=== PATIENT | female | born 2000 | race Caucasian/White ===

== ENCOUNTER 2024-01-31 20:17 | Inpatient (IN) | payer OTHER ==
[2024-01-31] MEDS: ELECTROLYTE-148 SOLN 500 ML IV ONE (21:35)
[2024-01-31] MEDS ORDERED: BUTORPHANOL TARTRATE 2 MG/ML VIAL ONE (22:32)
[2024-01-31] MEDS ORDERED: PROMETHAZINE HCL 25 MG/1 ML VIAL ONE (22:33)
[2024-01-31] MEDS: BUTORPHANOL TARTRATE 1 MG/ML VIAL IVPUSH ONE (23:45)
[2024-01-31] MEDS: PROMETHAZINE HCL 25 MG/1 ML VIAL IM ONE (23:45)
[2024-02-01] MEDS: ELECTROLYTE-148 SOLN 1,000 ML IV ONE (04:00)
[2024-02-01 05:26] VITALS: BMI 31.6
[2024-02-01 08:02] LABS: POTASSIUM 3.8 mmol/L (3.5-5.1)
[2024-02-01 08:02] LABS: INR 0.91 (0.83-1.09); PROTHROMBIN TIME (PATIENT) 10.3 SEC (9.7-13.0)
[2024-02-01 08:03] LABS: CALCIUM 8.7 mg/dL (8.5-10.1)
[2024-02-01 08:04] LABS: BLOOD UREA NITROGEN 5.8 mg/dL (7-18)
[2024-02-01 08:04] LABS: ACTIVATED PTT 31.5 SECONDS (25.2-36.5)
[2024-02-01 08:07] LABS: CREATININE 0.4 mg/dL (0.55-1.3)
[2024-02-01 08:09] LABS: BASO % 0.1 % (0-2.0); EOS % 0.1 % (0-4.5); HEMATOCRIT 40.7 % (32.4-45.2); HEMOGLOBIN 13.6 GM/dL (10.7-15.3); LYMPH % 12.2 % (8-40); MCH 28.9 pg (25.7-33.7); MCHC 33.5 g/dl (32.0-36.0); MEAN CELL VOLUME 86.3 fl (80-96); MEAN PLT VOLUME 10.5 fl (7.5-11.1); MONO % 4.7 % (3.8-10.2); NEUT % 82.9 % (42.8-82.8); PLATELET COUNT 212 10^3/uL (134-434); RBC 4.72 M/mm3 (3.60-5.2); WHITE BLOOD COUNT 19.3 K/mm3 (4.0-10.0)
[2024-02-01] MEDS ORDERED: AMPICILLIN SODIUM 2 GM VIAL ONE (09:23)
[2024-02-01] MEDS: AMPICILLIN - 2 GM in SODIUM CHLORIDE 100 ML IVPB ONE (09:30)
[2024-02-01] MEDS: ELECTROLYTE-148 SOLN 1,000 ML IV SCH (10:00)
[2024-02-01] MEDS ORDERED: FENTANYL/BUPIVACAINE/NS/PF - PCEA - 50 ML DISP.SYRIN EP ONE ×3 (11:16→19:06)
[2024-02-01] MEDS ORDERED: NALOXONE HCL 0.4 MG/ML VIAL IVPUSH PRN (11:17)
[2024-02-01] MEDS ORDERED: FENTANYL CITRATE/PF 50 MCG/ML VIAL ONE ×2 (11:18→19:29)
[2024-02-01] MEDS ORDERED: BUPIVACAINE HCL/PF 0.25% (2.5MG/ML) 10 ML VIAL ONE ×2 (11:19→19:29)
[2024-02-01] MEDS: FENTANYL/BUPIVACAINE/NS/PF - PCEA - 50 ML DISP.SYRIN EP SCH (11:35)
[2024-02-01] MEDS ORDERED: OXYTOCIN 30 UNITS in 0.9% NS 30 UNIT/500 ML INFUS.BAG IVPB ONE (11:57)
[2024-02-01] MEDS: OXYTOCIN 30 UNITS in 0.9% NS 30 UNIT/500 ML INFUS.BAG IVPB SCH (12:00)
[2024-02-01] MEDS ORDERED: AMPICILLIN SODIUM 1 GM VIAL ONE ×3 (12:37→20:37)
[2024-02-01] MEDS: AMPICILLIN - 1 GM in SODIUM CHLORIDE 100 ML IVPB SCH (12:40)
[2024-02-01] MEDS ORDERED: LIDO 2%/EPI 1:200000 PRESRVFRE (20 ML SDVIAL) ONE (19:29)
[2024-02-01] MEDS ORDERED: OXYTOCIN 20 UNITS in 0.9% NS 20 UNIT/1,000 ML INFUS.BAG IV ONE (21:01)
[2024-02-01] MEDS: ACETAMINOPHEN 1000 MG/100 ML BAG IVPB ONE (21:40)
[2024-02-01] MEDS: OXYTOCIN 20 UNITS in 0.9% NS 20 UNIT/1,000 ML INFUS.BAG IV SCH (22:55)
[2024-02-01 23:03] LABS: CORD BASE EXCESS -5.1 mmol/L (0-2); CORD PCO2 42.7 mmHg (30-78); CORD pH 7.309 (7.14-7.44)
[2024-02-01 23:05] LABS: CORD BASE EXCESS -7.9 mmol/L (0-2); CORD HCO3 22.1 mmHg (20-29); CORD PCO2 65.9 mmHg (30-78); CORD pH 7.143 (7.14-7.44)
[2024-02-01] MEDS ORDERED: oxyCODONE HCL 5 MG TABLET PO PRN (23:06)
[2024-02-01] MEDS ORDERED: BENZOCAINE 28 GM HEMORRHOIDAL OINTMENT TP PRN (23:06)
[2024-02-01] MEDS ORDERED: BISACODYL 10 MG SUPP.RECT RC PRN (23:06)
[2024-02-01] MEDS ORDERED: METHYLERGONOVINE MALEATE 0.2 MG/1 ML AMP IM PRN (23:06)
[2024-02-02] MEDS: GENTAMICIN IVPB ONE (00:45)
[2024-02-02] MEDS: SODIUM CHLORIDE IVPB ONE (00:45)
[2024-02-02] MEDS: IBUPROFEN 600 MG TABLET (FP) PO PRN (06:16)
[2024-02-02] MEDS: BENZOCAINE 20% 57 GM BOTTLE TP PRN (06:17)
[2024-02-02] MEDS: WITCH HAZEL 50% (TUCKS) 40 PAD/JAR PAD TP PRN (06:19)
[2024-02-02 08:05] LABS: HEMATOCRIT 37.5 % (32.4-45.2); HEMOGLOBIN 12.6 GM/dL (10.7-15.3); MCH 29.1 pg (25.7-33.7); MCHC 33.7 g/dl (32.0-36.0); MEAN CELL VOLUME 86.5 fl (80-96); MEAN PLT VOLUME 9.3 fl (7.5-11.1); PLATELET COUNT 176 10^3/uL (134-434); RBC 4.33 M/mm3 (3.60-5.2); RDW 15.1 % (11.6-15.6); WHITE BLOOD COUNT 28.7 K/mm3 (4.0-10.0)
[2024-02-02 09:52] LABS: ANISOCYTOSIS 0; HELMET CELLS 0; HOWELL-JOLLY BODIES 0; MACROCYTOSIS 0; OVALOCYTE 0; ROULEAU 0; SICKELED CELLS 0; TARGET CELLS 0; TEAR DROP CELLS 0; TOXIC GRANULATION 0
[2024-02-02] MEDS: ACETAMINOPHEN 325 MG TABLET (FP) PO PRN (09:52)
[2024-02-02] MEDS: PRENATAL VITAMINS W/ FOLIC ACID TABLET (FP) PO SCH (09:52)
[2024-02-02] MEDS: GENTAMICIN SO4 *PEDIATRIC* 20 MG/2 ML VIAL IVPB ONE (20:31)
[2024-02-02] MEDS: CLINDAMYCIN 600MG PREMIX IVPB 600 MG/50 ML BAG IVPB ONE ×2 (20:31)
[2024-02-02] MEDS ORDERED: SENNOSIDES/DOCUSATE COMBO (SENNA PLUS) TABLET (UD) PO PRN (22:00)
[2024-02-03 07:55] LABS: HEMATOCRIT 36.7 % (32.4-45.2); HEMOGLOBIN 12.2 GM/dL (10.7-15.3); MCH 28.8 pg (25.7-33.7); MCHC 33.2 g/dl (32.0-36.0); MEAN CELL VOLUME 86.8 fl (80-96); MEAN PLT VOLUME 9.3 fl (7.5-11.1); PLATELET COUNT 195 10^3/uL (134-434); RBC 4.23 M/mm3 (3.60-5.2); RDW 15.2 % (11.6-15.6); WHITE BLOOD COUNT 18.1 K/mm3 (4.0-10.0)
[2024-02-04 15:39] VITALS: BP 122/68; PULSE 110; RESP 17; TEMP 98
[2024-02-08 10:39] LABS: POC NITRAZINE POS
== END 2024-02-04 13:10 | disposition home or self-care (01) | DRG 560 ==
LOC: JDEL 20:17 → JLDR 22:25 → OBSVTOIN 02-01 06:00 → JLDR 02-01 06:08 → J3W 02-02 01:29
PROVIDERS: ADMIT Obstetrics & Gynecology; ATTEND Obstetrics & Gynecology
PROC: 10E0XZZ Delivery of Products of Conception, External Approach (ICD-10-PCS; principal; 2024-02-01)
PROC: 0W8NXZZ Division of Female Perineum, External Approach (ICD-10-PCS; 2024-02-01)
DX: O66.0 Obstructed labor due to shoulder dystocia (principal); O36.8330 Maternal care for abnormalities of the fetal heart rate or rhythm, third trimester, not applicable or unspecified; O41.1230 Chorioamnionitis, third trimester, not applicable or unspecified; O99.820 Streptococcus B carrier state complicating pregnancy; Z3A.39 39 weeks gestation of pregnancy; Z37.0 Single live birth
CPT/HCPCS: 36415; 36600; 59025; 59409; 80048; 82803; 83986-QW; 85025; 85027; 85610; 85730; 86780; 86803; 86850; 86900; 86901; G0378; J0131